=== PATIENT | female | born 1975 | race Caucasian/White ===

== ENCOUNTER 2016-06-22 16:20 | Observation (INO) ==
[2016-06-22 13:31] VITALS: BP 123/70
[2016-06-22 14:06] LABS: Bilirubin,Urine Negative (Negative); Blood,Urine Negative (Negative); Clarity,Urine Cloudy (Clear); Color,Urine Yellow (Yellow); Glucose,Urine (UA) Normal (Normal); Ketones,Urine Negative (Negative); Leukocyte Esterase,Urine Negative (Negative); Nitrite,Urine Negative (Negative); PH,Urine 7.5 pH Units (5.0-8.0); Protein,Urine Negative (Neg-Trace); Specific Gravity,Urine 1.019 (1.010-1.025); Urobilinogen,Urine Normal (Normal)
[2016-06-22 14:08] LABS: Bacteria,Urine None Seen per hpf (None-Few); Hyaline Casts,Urine None Seen per lpf (None-Few); RBC,Urine 0-3 per hpf (0-3); Squamous Epithelial Cell,Urine Many per lpf (None-Few); WBC,Urine 0-3 per hpf (0-3)
--- NOTE | 2016-06-22 14:52 | OB/GYN Progress Note ---
Date of Encounter: 06/22/16 Time of Encounter: 14:41 - Assessment and Plan (1) 37 weeks gestation of Current Visit: Yes Status: Acute (2) Vaginal discharge during in third trimester Current Visit: Yes Status: Acute Pt reports one small gush of fluid around noon today. SSE negative nitrazine, negative pool, negative fern. Physiologic appearing discharge in vault. Pt denies sx infection. SVE ft/50/-2. Discharge home. Pt to follow-up as scheduled. (3) Opiate abuse, continuous Current Visit: Yes Status: Acute SW consulted today. Await her recommendations for discharge. (4) Tobacco use affecting in third trimester, antepartum Current Visit: Yes Status: Acute (5) Previous delivery affecting Current Visit: Yes Status: Acute Subjective - Subjective Interval history: 40 year-old presenting at 37 weeks gestation with c/o vaginal discharge. She reports one small gush of fluid/discharge around noon today. No additional leaking. She also c/o pelvic pressure. No cramping, contractions, or vaginal bleeding. Good FM. She receives care with [facility] in [place] but states she will not go to [facility] to deliver. She has a history of 1 previous delivery and states she will wait until she is in labor and come to [place] to deliver. She does admit to a history of opiate abuse for which she is currently self medicating with subutex and suboxone that she buys off the street. She also reports tobacco use. SHe denies any other substance abuse. Antepartum ROS: movement normal, no loss of fluid, no vaginal bleeding, no contractions Objective - Vital Signs Vital Signs: Vital Signs Temp Pulse Resp BP 06/22/16 13:19 97.4 F L 93 16 123/70 Intake and Output 06/21/16 06/22/16 06/22/16 23:59 07:59 15:59 Other: Weight 64.6 kg Patient Weight 06/22/16 23:59 Weight 64.6 kg - Exam FHR: category 1 FHR comments: 130 BPM, reactive NST Auscultation: bilateral: normal Abdomen: Present: soft, gravid. Absent: tenderness Uterus: Present: normal. Absent: tenderness Cervical dilation: ft Cervix effacement: 50 station: -2 - Labs Labs: Abnormal lab results Urine Clarity Cloudy (Clear) A 06/22/16 13:45 Ur Squamous Epith Cells Many per lpf (None-Few) H 06/22/16 13:45 - Allied health notes Allied health notes reviewed: social work (SW consulted for pt getting buprenorphine off the street)
[2016-06-22 15:34] LABS: Amphetamine Screen,Urine Negative ng/mL (Cutoff=1000); Barbiturate Screen,Urine Negative ng/mL (Cutoff=200); Benzodiazepines Screen,Urine Negative ng/mL (Cutoff=200); Cannabinoid Screen,Urine Negative ng/mL (Cutoff = 50); Cocaine Screen,Urine Negative ng/mL (Cutoff= 300); Opiate Screen,Urine Negative ng/mL (Cutoff=300); Phencyclidine Screen,Urine Negative ng/mL (Cutoff=25)
[2016-06-22 16:11] LABS: Prothrombin Time 11.2 Seconds (9.4-12.1)
[2016-06-22 16:22] LABS: Albumin 2.7 g/dL (3.5-5.0); Albumin/Globulin Ratio 0.8 (1.1-2.2); Bilirubin,Direct 0.1 mg/dL (0.0-0.5); Bilirubin,Indirect 0.1 mg/dL (0.0-1.2); Bilirubin,Total 0.2 mg/dL (0.2-1.2); Globulin 3.2 g/dL (2.4-3.5); Total Protein 5.9 g/dL (6.0-8.3)
[2016-06-25 09:33] LABS: HCV Quant Interpretation NOT DETECTED (Not Detected)
[2016-06-26 07:51] LABS: Buprenorphine, Urine <2 ng/mL
== END 2016-06-22 16:45 | disposition home or self-care (01) ==
LOC: 1NENULAB
PROVIDERS: ADMIT Obstetrics & Gynecology; ATTEND Obstetrics & Gynecology

== ENCOUNTER → 2016-07-10 21:54 | Observation (INO) ==
--- NOTE | 2016-07-10 21:40 | Discharge Summary ---
Date of Encounter: 07/10/16 Time of Encounter: 21:41 - Discharge Diagnosis (1) 38 weeks gestation of Priority: Primary Status: Acute Comments: admitted for labor observation (2) False labor after 37 completed weeks of gestation Priority: Secondary Status: Acute Comments: false labor (3) NST (non-stress test) reactive Priority: Secondary Status: Acute Comments: Reactive NST baseline 125 bpm moderate variability +15x15 accels no decels noted. - Discharge Medications Home Medications: Nitrofurantoin (BID) [Macrobid] 100 mg PO BID 7 Days 02/26/16 [Rx] Doxylamine Succinate [Sleep Aid] 25 mg PO QPM #20 tablet 03/29/16 [Rx] Pyridoxine HCl [Vitamin B-6] 25 mg PO QPM #20 tablet 03/29/16 [Rx] Allergies/Adverse Reactions: Allergies Sulfa (Sulfonamide Antibiotics) Adverse Reaction (Mild, Verified 02/26/16 00:57) Hives Date of admission: 07/10/16 20:12 Discharging clinician: Elvie Banda Anticipated date of discharge: 07/10/16 - Patient Status Disposition: Home, Self-Care Condition: Good Functional capacity at discharge: independent ambulation - Discharge Instructions - Diet and Activity Activity: increase activity as tolerated Diet: regular diet Hospital 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 Patient denies any contractions since or LOF or VB. Patient reports +FM. Time Attestation: Total time spent providing and/or coordinating discharge services: Time Spent: Less than 30 minutes Exam - Constitutional General appearance IM: A&O X 3, pleasant, answers questions appropriately - Other Additional findings: FHR 125 bpm moderate variability +15x15 accels no decels noted. SVE per RN . Patient was seen and assessed by RN. Reactive NST. No cervical change during labor evaluation. - VTE Reasons for not Prescribing Prophylaxis: Treatment not Indicated - Low risk for VTE
== END | disposition home or self-care (01) ==
LOC: 1NENULAB
PROVIDERS: ADMIT Obstetrics & Gynecology; ATTEND Obstetrics & Gynecology

== ENCOUNTER 2016-07-17 10:10 | Inpatient (IN) ==
[2016-07-17] MEDS ORDERED: Ringers Solution, Lactated 1,000 ML IVC ONE (10:28)
[2016-07-17] MEDS ORDERED: CeFAZolin Pre 2,000 MG/100 ML 2,000 MG/100 ML BAG IVPB ONE (10:28)
[2016-07-17] MEDS ORDERED: Famotidine 20 MG/2 ML VIAL IVP ONE (10:28)
[2016-07-17] MEDS ORDERED: Metoclopramide 10 MG/2 ML VIAL IVP ONE (10:28)
[2016-07-17] MEDS ORDERED: Ringers Solution, Lactated 1,000 ML IVC SCH (10:30)
[2016-07-17 10:55] LABS: Basophils % 0.8 %; Eosinophils # 0.2 K/mcL (0.0-0.6); Eosinophils % 3.6 %; Immature Granulocytes % 0.6 % (0-4); Lymphocytes # 1.5 K/mcL (0.6-4.6); Lymphocytes % 28.9 %; Mean Corpuscular HGB Conc 34.4 g/dL (31.6-35.5); Mean Corpuscular Hemoglobin 29.9 pg (28.0-33.3); Monocytes # 0.5 K/mcL (0.0-1.3); Monocytes % 9.3 %; Platelet Count 189 K/mcL (140-400); Red Blood Count 3.68 M/mcL (3.82-4.97); Red Cell Distribution Width 12.6 % (11.5-14.5); Segmented Neutrophils % 56.8 %
--- NOTE | 2016-07-17 10:56 | OB/GYN History & Physical ---
Date of Encounter: 07/17/16 Time of Encounter: 10:50 Assessment and Plan (1) 39 weeks gestation of Current visit: Yes Status: Chronic (2) Suboxone maintenance treatment complicating , antepartum Current visit: Yes Status: Chronic Qualifiers: Trimester: third trimester Qualified Code(s): O99.323 - Drug use complicating , third trimester; F11.20 - Opioid dependence, uncomplicated (3) Tobacco use affecting in third trimester, antepartum Current visit: No Status: Chronic (4) Previous delivery affecting Current visit: Yes Status: Acute Repeat section. Risks, benefits, and alternatives discussed. Patient declines at tertiary care and would like to proceed with repeat . Tubal papers were signed 06/22/16 and therefore she cannot be sterilized on this date. Will discuss an interval procedure vs LARC. History of Present Illness Chief complaint: here for HPI: Ms. Nunez is a 40 year old female G4 P 3-0-0-3 at 39 weeks admitted for repeat section. has been complicated by late transfer of care, prior , polysubstance abuse, psych history, tobacco abuse, multiparity, advanced maternal age. Past Med Surg Social Fam HX - Past Medical History Source: patient Medical history: no medical history Psychiatric history: ADHD, bipolar, depression, PTSD, schizophrenia, previous psychiatric hospitalization - Past Surgical History Surgical History: , other (carpal tunnel bilateral) - Social History Smoking Status: Current every day smoker Packs per day: .5 Smokeless Tobacco Status: No Alcohol use: occasionally Drug use: marijuana, prescription drug abuse, other - Family History Mother Adopted: No Family Member Ethnicity: Non- Living Status: Still Living Hx Family Cardiac Disorders: No Hx Family Respiratory Disorders: No Hx Family Cancer: No Hx Family GI Disorders: No Hx Family Genitourinary Disorders: No Hx Family Endocrine Disorder: No Hx Family Musculoskeletal Disorders: No Hx Family Neuromuscular Disorders: No Hx Family Neurologic Disorders: No Hx Family HEENT Disorders: No Hx Family Autoimmune Disorders: No Hx Family Reproductive Disorders: No Hx Family Psychosocial Disorders: Yes (she is on antidepressants) Hx Family Medical Disorders: No Obstetrical History - Pregnancies : 4 Para: 3 Medications and Allergies Buprenorphine HCl [Subutex] 8 mg SL DAILY 07/10/16 [History] Dextroamphetamine/Amphetamine [Adderall Xr 25 mg Capsule] 25 mg PO DAILY [History] Vit #108/Iron/FA [ One Tablet] 1 each PO DAILY 07/10/16 [ History] Allergies naltrexone [From Vivitrol] Allergy (Verified 07/17/16 10:49) Insomnia Sulfa (Sulfonamide Antibiotics) Adverse Reaction (Mild, Verified 02/26/16 00:57) Hives Review of System OB All systems PM: reviewed and no additional remarkable complaints except as stated Exam - Vital Signs Vital signs: Initial Vital Signs Temp Pulse Resp BP 97.8 F 76 16 107/59 07/17/16 10:33 07/17/16 10:33 07/17/16 10:33 07/17/16 10:33 - Constitutional Constitutional: no acute distress - HEENT HEENT: EOMI - Neck Neck exam: full ROM - Lungs Respiratory exam: CTAB - Cardiovascular Cardiovascular exam: RRR, +S1, +S2 - Abdomen Abdomen: Present: bowel sounds normal, gravid, non tender - Extremities Extremities exam: normal capillary refill, normal inspection - Uterus Uterus exam: Present: normal size, normal contour Results Result Diagrams: 07/17/16 10:26 All other labs normal. - VTE Reasons for not Prescribing Prophylaxis: Treatment not Indicated - Low risk for VTE
[2016-07-17] MEDS ORDERED: *HR* Morphine Sulfate/PF 5 MG/10 ML AMPUL ONE (11:25)
[2016-07-17] MEDS ORDERED: *HR* Oxytocin 10 UNIT/ML VIAL IM ONE ×2 (11:25→13:19)
[2016-07-17] MEDS ORDERED: *HR* Phenylephrine 10 MG/ML VIAL ONE (11:25)
[2016-07-17] MEDS ORDERED: *HR* FentaNYL (PF) 100 MCG/2 ML VIAL ONE (11:25)
[2016-07-17] MEDS ORDERED: Albuterol 2.5 MG/3 ML NEBULIZER IH STA (11:33)
--- NOTE | 2016-07-17 11:45 | Anesthesia Evaluation PreOp ---
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 Hx of L-breast mass. LATE CARE) Anesthesia History: No Prior Anesthetic Complications, Past Anesthesia (CTR, emergent C/S) : Yes ( at 39.0wks) Alcohol Use: occasionally Drug use: marijuana, prescription drug abuse (Suboxone use - last dose 07/16/16 @ 1700), other Medications and Allergies Buprenorphine HCl [Subutex] 8 mg SL DAILY 07/10/16 [History] Dextroamphetamine/Amphetamine [Adderall Xr 25 mg Capsule] 25 mg PO DAILY [History] Vit #108/Iron/FA [ One Tablet] 1 each PO DAILY 07/10/16 [ History] Allergies naltrexone [From Vivitrol] Allergy (Verified 07/17/16 10:49) Insomnia Sulfa (Sulfonamide Antibiotics) Adverse Reaction (Mild, Verified 02/26/16 00:57) Hives - Meds/Allergy Pre-op Review Medications Reviewed: Yes Allergies Reviewed: Yes Beta Blockers on Current Med List: No Anesthesia Results - Labs 07/17/16 10:26 Laboratory Tests 03/29/16 06/22/16 06/22/16 19:55 15:45 15:45 PT 11.2 INR 1.0 APTT 24.1 L Sodium 136 Potassium 3.4 L Chloride 106 Carbon Dioxide 21 BUN 13 Creatinine 0.50 L Est GFR (Non-Af Amer) > 60 Glucose 98 Anesthesia Exam Vital Signs/O2 Sat/Glucose, Most Current Temp Pulse Resp BP 07/17/16 10:33 97.8 F 76 16 107/59 Vital Signs Temp Pulse Resp BP 07/17/16 10:33 97.8 F 76 16 107/59 Intake and Output 07/16/16 07/17/16 07/17/16 23:59 07:59 15:59 Other: Weight 97.8 kg Patient Weight 07/17/16 23:59 Weight 97.8 kg Height: 5'8: Weight: 215# bmI = 33 NPO (# of Hours): mnOC - HEENT Pupil (Motor): Pupils equal, EOMI Mallampati: II Teeth: Missing, Poor dentition (Fair dentition) Oral Opening: Greater than 3 - CUSTOMER SERVICE TECHNICIAN LOC: Oriented CUSTOMER SERVICE TECHNICIAN Motor: Normal RUE, Normal LUE, Normal RLE, Normal LLE, Normal Face CUSTOMER SERVICE TECHNICIAN Sensory: Normal: RUE, LUE, RLE, LLE, Face - Cardiac Rhythm: Regular Murmur: None - Pulmonary Breath Sounds: bilateral Clear Respiratory Effort: Symmetrical Anesthesia Assess/Plan ASA Score: 3 (PTSD, Smoker, Polysubstance abuse on Suboxone, BiPolar) Modified [place] Scale for Level of Consciousness: Cooperative, oriented, and tranquil Monitoring Plan: Standard Monitors Recovery Plan: PACU Anes Supervising Prov Stmt: Pt seen/evaluated, R&B Discussed, questions answered and consent obtained. Jian Hernandez MD
[2016-07-17] MEDS ORDERED: *HR* HYDROmorphone (PF) 1 MG/ML SYRINGE IVP PRN ×2 (12:39→15:57)
[2016-07-17] MEDS ORDERED: Naloxone 0.4 MG/ML INJ IVP PRN ×3 (12:39→15:57)
[2016-07-17] MEDS ORDERED: Ondansetron 4 MG/2 ML VIAL IVP PRN ×3 (12:39→15:57)
[2016-07-17] MEDS ORDERED: *HR* OxyCODONE/APAP 5/325 TABLET PO PRN (12:39)
[2016-07-17] MEDS ORDERED: *HR* Morphine 2 MG/ML SYRINGE IVP PRN ×2 (12:39→15:57)
[2016-07-17] MEDS ORDERED: Ibuprofen 400 MG TABLET PO PRN ×2 (12:39→15:57)
[2016-07-17] MEDS ORDERED: EPHEDrine 50 MG/ML VIAL ONE (12:41)
--- NOTE | 2016-07-17 12:51 | Anesthesia Procedures ---
Date of Encounter: 07/17/16 Time of Encounter: 12:48 Procedures: Anesthesia - Epidural/Spinal Patient examined: Yes OB Eval: Gestational age: 39 OB Eval: : 4 OB Eval: Hx Para: 3 OB Eval: Contractions: Non-stressed pattern Consent Obtained: Yes Supplemental Oxygen: Nasal Cannula Supplemental Oxygen Rate (L/min): 4 Site Prep: Aseptic Technique, Sterile prep and drape, 0.5% Chlorhexidine/Alcohol Patient position: upright Local Anesthetic: Lidocaine 1% Amount of Local Anesthetic used: 3 Loading Dose: Fentanyl (mcg): 7 Interspace Used: L2-L3 Loss of Resistance (AURELIA): No Blood: No CSF: Yes Paresthesia: No Spinal Needle Gauge: 25 Spinal Dose: marcaine 12mg duramorph 0.2, fentanyl 7 mcg Procedure: aseptic throughout, tolerated well, effective block Vitals + FHT's: Vital Signs/O2 Sat, Most Current Temp Pulse Resp BP 97.8 F 76 16 107/59 07/17/16 10:33 07/17/16 10:33 07/17/16 10:33 07/17/16 10:33
[2016-07-17] MEDS ORDERED: Ringers Solution, Lactated 1,000 ML ONE (12:56)
[2016-07-17] MEDS ORDERED: Acetaminophen IV 1,000 MG/100 ML INFUS..BTL IVPB ONE (13:34)
--- NOTE | 2016-07-17 13:46 | OB/GYN Procedure Note ---
Section - Date of procedure: 07/17/16 Preop diagnosis: desires repeat Post-op diagnosis: same Procedure: repeat low transverse Surgeon: Ophelia Parker Estimated blood loss (cc): 400 Case Hardener: Piotr Koch Anesthesia Type: Spinal section complications: none Disposition: L&D Recovery Room Specimens: Placenta - (s) Infant A Delivery Date: 07/17/16 Delivery Time: 13:00 Presentation: vertex Route of delivery: Gender: Male Viability: Viable Pounds: 6 Ounces: 14 at 1 minute: 8 at 5 minutes: 9 Shoulder Dystocia: not encountered Specimens collected: cord blood Placenta: spontaneous Cord: 3 umbilical vessels - Narrative Narrative: Patient was taken to the operative suite and placed under spinal anesthetic. She was then prepped and draped in normal sterile fashion in the dorsal supine position. Timeout was then performed. Antibiotics were given at room time. SCDs are on and active. Pfannenstiel skin incision is then made and carried through to underlying layer of fascia with the Bovie. The fascia was then incised in the midline and incision extended laterally with the Clarke scissors. The fascia was tented up and dissected off the rectus muscles sharply. The rectus muscles were in the midline and the peritoneum was tented up and entered sharply with the Metzenbaum scissors. The peritoneal incision was then extended bluntly. The bladder blade was then inserted. A low transverse uterine incision was then made. The infant vertex was brought to the incision and the was delivered using fundal pressure. There was no nuchal cord. Cord was clamped and cut. Infant was handed to waiting nursery staff. Placenta delivered spontaneously complete and intact with a three-vessel cord. The uterus was cleared of all clots and debris using moist laparotomy sponge. The uterine incision was then closed using 0 Vicryl in a running locked fashion. A second layer of the same suture was used to obtain excellent hemostasis. The abdomen was then cleared of all clots and debris using copious irrigation. The fascial incision was then closed using 0 Vicryl in a running fashion. The skin was closed using 4-0 Vicryl in a subcuticular fashion. Steri- Strips and Johnie dressing are then placed. Mother and taken to recovery in stable condition.
[2016-07-17] MEDS ORDERED: Oxytocin 20 units/ LR 1000 mL 20 UNIT/1,000 ML BAG IVC ONE (15:57)
[2016-07-17] MEDS ORDERED: Sennosides 8.6 MG TABLET PO PRN (15:57)
[2016-07-17] MEDS ORDERED: Metoclopramide 10 MG/2 ML VIAL IVP PRN (15:57)
[2016-07-17] MEDS ORDERED: Acetaminophen 325 MG TABLET PO PRN (15:57)
[2016-07-17] MEDS ORDERED: BUPRENORPHINE HCL 8 MG SL SCH (17:00)
[2016-07-17] MEDS: Ibuprofen 600 MG TABLET PO PRN (20:05)
[2016-07-18] MEDS: Oxytocin 20 units/ LR 1000 mL 20 UNIT/1,000 ML BAG IVC SCH ×2 (00:12→08:37)
[2016-07-18] MEDS: Ibuprofen 600 MG TABLET PO PRN ×2 (05:25→19:35)
[2016-07-18 05:51] LABS: Basophils % 0.2 %; Eosinophils # 0.2 K/mcL (0.0-0.6); Eosinophils % 3.8 %; Hemoglobin 10.7 g/dL (11.5-15.4); Immature Granulocytes % 0.3 % (0-4); Lymphocytes # 1.4 K/mcL (0.6-4.6); Lymphocytes % 22.3 %; Mean Corpuscular HGB Conc 34.5 g/dL (31.6-35.5); Mean Corpuscular Hemoglobin 30.1 pg (28.0-33.3); Mean Corpuscular Volume 87.3 fL (83.0-100.0); Mean Platelet Volume 9.8 fL (9.4-12.4); Monocytes # 0.5 K/mcL (0.0-1.3); Monocytes % 7.5 %; Neutrophils # 4.1 K/mcL (1.6-8.9); Platelet Count 174 K/mcL (140-400); Red Blood Count 3.55 M/mcL (3.82-4.97); Red Cell Distribution Width 12.9 % (11.5-14.5); Segmented Neutrophils % 65.9 %
[2016-07-18] MEDS: *HR* OxyCODONE/APAP 5/325 TABLET PO PRN ×2 (06:46→14:30)
[2016-07-18] MEDS: Simethicone 80 MG TAB.CHEW PO PRN ×2 (06:49→19:49)
[2016-07-18] MEDS: Prenatal Vit/FA 1 EACH TABLET PO SCH (08:34)
--- NOTE | 2016-07-18 08:55 | OB/GYN Progress Note ---
Date of Encounter: 07/18/16 Time of Encounter: 08:52 - Assessment and Plan (1) Status post repeat low transverse section Current Visit: Yes Status: Acute s/p RC/S POD# 2, patient doing well, encouraged ambulation, aim for discharge tomorrow, continue current inpt care Subjective - Subjective Patient reports: appetite normal, pain well controlled, ambulating normally ( olivia taken out this AM, not yet urinated, tolerating breakfast) Objective - Vital Signs Latest vital signs: Vital Signs Temp Pulse Resp BP Pulse Ox 07/18/16 07:30 98.6 F 71 16 109/72 07/18/16 06:40 69 20 127/78 07/18/16 03:35 97.8 F 67 14 103/58 95 07/17/16 23:44 98.6 F 64 16 99/58 94 07/17/16 20:00 98.1 F 70 16 106/64 97 07/17/16 18:45 97.8 F 63 16 108/69 96 07/17/16 17:45 97.6 F 59 16 115/68 96 07/17/16 16:45 97.8 F 61 16 116/70 07/17/16 16:15 97.8 F 65 18 115/70 95 07/17/16 15:45 97.9 F 67 18 124/76 97 07/17/16 10:33 97.8 F 76 16 107/59 Intake and Output 07/17/16 07/18/16 07/18/16 23:59 07:59 15:59 Intake Total 560 / 560 1750 / 1750 1000 / 1000 Output Total 125 / 125 500 / 500 Balance 435 / 435 1250 / 1250 1000 / 1000 Intake: IV Fluids 1000 / 1000 Pitocin 20 unit In 1,000 1000 / 1000 ml @ 125 mls/hr IVC .Q8H [facility] Rx#:[id number] Oral 560 / 560 750 / 750 Other 1000 / 1000 Output: Urine 125 / 125 Catheter 500 / 500 Other: Weight 66.4 kg Patient Weight 07/18/16 23:59 Weight 66.4 kg - Exam Lungs: bilateral: normal Chest: Normal S1, Normal S2 Extremities: Present: normal Abdomen: Present: soft Incision: Present: dressed Uterus: Present: normal - Labs Labs: Laboratory Results - last 24 hr 07/17/16 07/18/16 10:26 05:21 WBC 5.3 6.3 RBC 3.68 L 3.55 L Hgb 11.0 L 10.7 L Hct 32.0 L 31.0 L MCV 87.0 87.3 MCH 29.9 30.1 MCHC 34.4 34.5 RDW 12.6 12.9 Plt Count 189 174 MPV 10.0 9.8 Immature Gran % 0.6 0.3 Seg Neutrophils % 56.8 65.9 Lymphocytes % 28.9 22.3 Monocytes % 9.3 7.5 Eosinophils % 3.6 3.8 Basophils % 0.8 0.2 Neutrophils # 3.0 4.1 Lymphocytes # 1.5 1.4 Monocytes # 0.5 0.5 Eosinophils # 0.2 0.2 Basophils # 0.0 0.0
[2016-07-18] MEDS: BUPRENORPHINE HCL 8 MG SL SCH (19:36)
[2016-07-19] MEDS: Ibuprofen 600 MG TABLET PO PRN ×2 (02:06→12:14)
--- NOTE | 2016-07-19 08:18 | OB/GYN Progress Note ---
Date of Encounter: 07/19/16 Time of Encounter: 08:15 - Assessment and Plan (1) Status post repeat low transverse section Current Visit: Yes Status: Acute Patient is recovering from her well. She is without complaints currently. (2) Family planning initiation Current Visit: Yes Status: Acute Discussed options. We were unable to do a tubal ligation due to her late transfer of care. We discussed Depo Provera today and a scheduling of interval l/s tubal . Patient is agreeable to do so. She is certain she does not desire fertility in the future. Subjective - Subjective Interval history: POD 2 repeat section. Patient denies any concerns. Pain is well controlled. Bleeding is slowing down. She is eating and drinking without difficulty. Baby is doing well. Patient reports: appetite normal, voiding normally, pain well controlled, ambulating normally : doing well Objective - Vital Signs Latest vital signs: Vital Signs Temp Pulse Resp BP Pulse Ox 07/18/16 19:30 98.5 F 66 14 129/76 95 07/18/16 11:45 98.4 F 70 18 124/74 Intake and Output 07/18/16 07/19/16 07/19/16 23:59 07:59 15:59 Intake Total 200 / 200 800 / 800 Output Total 700 / 700 1200 / 1200 Balance -500 / -500 -400 / -400 Intake: Oral 200 / 200 800 / 800 Output: Urine 700 / 700 1200 / 1200 Other: Meal Dinner Percent of Meal Consumed 100% - Exam Lungs: bilateral: normal Chest: Normal S1, Normal S2 Extremities: Present: normal Abdomen: Present: normal appearance, soft. Absent: distention, tenderness Incision: Present: dressed (areas of demarcation on Johnie dressing are unchanged ) Uterus: Present: normal, firm
[2016-07-19] MEDS: Prenatal Vit/FA 1 EACH TABLET PO SCH (09:07)
[2016-07-19] MEDS: BUPRENORPHINE HCL 8 MG SL SCH (09:07)
[2016-07-19] MEDS: *HR* OxyCODONE/APAP 5/325 TABLET PO PRN (20:12)
[2016-07-20] MEDS: Ibuprofen 600 MG TABLET PO PRN ×3 (00:24→15:18)
[2016-07-20] MEDS: Prenatal Vit/FA 1 EACH TABLET PO SCH (07:29)
--- NOTE | 2016-07-20 07:42 | OB/GYN Progress Note ---
Date of Encounter: 07/20/16 Time of Encounter: 07:39 - Assessment and Plan (1) Status post repeat low transverse section Current Visit: Yes Status: Acute POD#3 repeat baby is 5 day hold (2) Suboxone maintenance treatment complicating , antepartum Current Visit: Yes Status: Chronic Qualifiers: Trimester: third trimester Qualified Code(s): O99.323 - Drug use complicating , third trimester; F11.20 - Opioid dependence, uncomplicated (3) Mother currently breast-feeding Current Visit: Yes Status: Acute Subjective - Subjective Principal diagnosis: s/p Interval history: Pt reports no complaints. States she is ready to go home. Denies nausea, uncontrolled pain. Ambulating well. Patient reports: appetite normal, voiding normally, pain well controlled, ambulating normally [place]: doing well Objective - Vital Signs Latest vital signs: Vital Signs Temp Pulse Resp BP Pulse Ox 07/19/16 20:41 98.7 F 73 16 130/79 95 Intake and Output 07/19/16 07/19/16 07/20/16 15:59 23:59 07:59 Intake Total 480 / 480 1360 / 1360 Output Total 850 / 850 700 / 700 Balance -370 / -370 660 / 660 Intake: Oral 480 / 480 1360 / 1360 Output: Urine 850 / 850 700 / 700 Other: Meal Lunch Dinner Percent of Meal Consumed 100% Stool Size Moderate Stool Characteristics Normal for Patient - Exam Lungs: bilateral: normal Chest: Normal S1, Normal S2 Extremities: Present: normal Abdomen: Present: normal appearance, soft Incision: Present: dry, intact, other (VIRGILIO dressing changed ), dressed Uterus: Present: normal, firm Comments: I personally examined the pt. VIRGILIO dressing removed and incision clean, dry, and intact. Will have skin cleaned and apply new VIRGILIO dressing. Uterus firm, non-tender. Gia Campbell
[2016-07-20] MEDS: BUPRENORPHINE HCL 8 MG SL SCH (10:13)
[2016-07-21 07:48] VITALS: BP 123/74
--- NOTE | 2016-07-21 08:12 | Discharge Summary ---
Date of Encounter: 07/21/16 Time of Encounter: 08:09 - Discharge Diagnosis (1) Breast feeding status of mother Priority: Secondary Status: Acute Comments: lactations support prn (2) Status post emergency section Priority: Primary Status: Acute Comments: continue routine /postop care disharge home today follow up in 2 weeks for incision check with Dr. Parker - Discharge Medications Prescriptions: Ibuprofen [Motrin] 600 mg PO Q6HR PRN #60 tablet PRN Reason: Cramping Breast Pump [BREAST PUMP] 1 each .ROUTE AD #1 each Docusate [Colace] 100 mg PO BID #60 capsule Home Medications: Buprenorphine HCl [Subutex] 8 mg SL DAILY 07/10/16 [History] Dextroamphetamine/Amphetamine [Adderall Xr 25 mg Capsule] 25 mg PO DAILY [History] Vit #108/Iron/FA [ One Tablet] 1 each PO DAILY 07/10/16 [ History] Breast Pump [BREAST PUMP] 1 each .ROUTE AD #1 each 07/21/16 [Rx] Docusate [Colace] 100 mg PO BID #60 capsule 07/21/16 [Rx] Ibuprofen [Motrin] 600 mg PO Q6HR PRN #60 tablet 07/21/16 [Rx] Vit/FA 1 each PO DAILY tablet 07/21/16 [Rx] Allergies/Adverse Reactions: Allergies naltrexone [From Vivitrol] Allergy (Verified 07/17/16 10:49) Insomnia Sulfa (Sulfonamide Antibiotics) Adverse Reaction (Mild, Verified 02/26/16 00:57) Hives Data Procedures and tests throughout hospitalization: Laboratory Tests 07/17/16 07/18/16 10:26 05:21 WBC 5.3 6.3 RBC 3.68 L 3.55 L Hgb 11.0 L 10.7 L Hct 32.0 L 31.0 L MCV 87.0 87.3 MCH 29.9 30.1 MCHC 34.4 34.5 RDW 12.6 12.9 Plt Count 189 174 MPV 10.0 9.8 Immature Gran % 0.6 0.3 Seg Neutrophils % 56.8 65.9 Lymphocytes % 28.9 22.3 Monocytes % 9.3 7.5 Eosinophils % 3.6 3.8 Basophils % 0.8 0.2 Neutrophils # 3.0 4.1 Lymphocytes # 1.5 1.4 Monocytes # 0.5 0.5 Eosinophils # 0.2 0.2 Basophils # 0.0 0.0 Date of admission: 07/17/16 10:10 Primary care physician: PCP NO Consults: 07/17/16 15:57 Consult to Client Services Administrator (W&C) [CONS] Routine Reason For Exam: Reason for SW Consult: suboxone Discharging clinician: Elvie Banda Anticipated date of discharge: 07/21/16 - Patient Status Disposition: Home, Self-Care Condition: Good Functional capacity at discharge: independent ambulation - Discharge Instructions Follow Up With: RYANNE,PCP [Primary Care Provider] - Ophelia Parker DO [Partnered Physician] - - Diet and Activity Activity: increase activity as tolerated Diet: regular diet Hospital Course Delivery: section Episiotomy: none Laceration: none complications: none Discharge diagnosis: IUP at term delivered baby: male (breast feeding) Time Attestation: Total time spent providing and/or coordinating discharge services: Time Spent: Less than 30 minutes - VTE Reasons for not Prescribing Prophylaxis: Treatment not Indicated - Low risk for VTE Documentation of Mechanical Device: Intermittent pneumatic compression device Exam - Constitutional Vitals: Temp Pulse Resp BP Pulse Ox 98.6 F 69 12 123/74 95 07/21/16 07:40 07/21/16 07:40 07/21/16 07:40 07/21/16 07:40 07/21/16 07:40 General appearance IM: A&O X 3, pleasant, answers questions appropriately - Respiratory Respiratory exam: Present: CTAB - Cardiovascular Cardiovascular exam IM: Present: RRR, +S1, +S2 - GI/Abdominal GI/Abdominal exam IM: normal bowel sounds - Uterine Tone: Firm Uterus Position: 2 Fingers Below Umbilicus, Midline - Extremities Exam Extremities exam IM: Present: full ROM, normal capillary refill, normal inspection - Neurological Exam Neurological exam: alert, oriented X3, reflexes normal
[2016-07-21] MEDS: Prenatal Vit/FA 1 EACH TABLET PO SCH (08:51)
[2016-07-21] MEDS: BUPRENORPHINE HCL 8 MG SL SCH (08:51)
[2016-07-21] MEDS: Ibuprofen 600 MG TABLET PO PRN (08:51)
== END 2016-07-21 09:19 | disposition home or self-care (01) | DRG 765 ==
LOC: 1NENULAB 10:10 → 1NENUOBS 15:54
PROVIDERS: ADMIT Obstetrics & Gynecology; ATTEND Obstetrics & Gynecology